=== PATIENT | male | born 2005 | race Two or more races ===

== ENCOUNTER 2025-07-24 10:02 | Inpatient (IN) | payer MEDICAID, OTHER ==
[2025-07-22 14:50] VITALS: BP 130/81; PULSE 54; RESP 20; TEMP 97.9; O2SAT 100
[~2025-07-24] VITALS: Ht 182.9 cm; Wt 100.0 kg
--- NOTE | 2025-07-24 10:26 | ED.PDOC ---
GI ASSESSMENT HPI Comments 20 y.o male presents to the ED via EMS for a chief complaint of right sided abdominal pain radiating to his flank that started one month ago. Patient describes pain as sharp and intermittent, but states pain worsened today. Patient denies any nausea, vomiting or diarrhea. Additionally, patient reports constipation with last BM being one week ago and also has painful urination. Chief Complaint: Abdominal Pain Time Seen by MD: 09:55 Reviewed Notes: Nurses Notes, [facility] Department Supervisor Notes, Medications, Allergies Allergies: Coded Allergies: NO KNOWN ALLERGIES (Unverified , 07/24/25) Information Source: Patient, Emergency Med Personnel Mode of Arrival: EMS Timing: Months (1) Duration: Intermittent Quality: Sharp Vomitus: None Stool: Normal Severity: Moderate Recent: None Recent Hx of: None Pain Location: RUQ, RLQ Modifying Factors: Nothing Associated sign and symptoms: Abdominal Pain Past Medical History PAST MEDICAL HISTORY: Denies Surgical History: Denies all surgeries Family History Family History: Reviewed,noncontributory to illness, No family hx of Cancer, No family hx of DM, No family hx of Heart rajiv, No family hx of HTN, No family hx ofKidney rajiv, No family hx of Liver rajiv, No family hx of Lung rajiv, No family hx of Stroke Social History Smoker: Non-Smoker Alcohol: Denies ETOH Use Drugs: Denies Drug Use Lives In: Home Constitutional: denies: chills, diaphoresis, fatigue, fever, malaise, sweats, weakness, others EENTM: denies: blurred vision, double vision, ear bleeding, ear discharge, ear drainage, ear pain, ear ringing, eye pain, eye redness, hearing loss, mouth pain, mouth swelling, nasal discharge, nose bleeding, nose congestion, nose pain, photophobia, tearing, throat pain, throat swelling, voice changes, others Respiratory: denies: cough, hemoptysis, orthopnea, SOB at rest, shortness of breath, SOB with excertion, stridor, wheezing, others Cardiovascular: denies: chest pain, dizzy spells, diaphoresis, Dyspnea on exertion, edema, irregular heart beat, left arm pain, lightheadedness, palpitations, PND, syncope, others Gastrointestinal: reports: abdominal pain, constipated; denies: abdomen distended, blood streaked bowels, diarrhea, dysphagia, difficulty swallowing, hematemesis, melena, nausea, poor appetite, poor fluid intake, rectal bleeding, rectal pain, vomiting, others Genitourinary: reports: dysuria, flank pain; denies: burning, frequency, hematuria, incontinence, penile discharge, penile sore, pain, testicle pain, testicle swelling, urgency, others Neurological: denies: dizziness, fainting, headache, left sided numbness, left sided weakness, numbness, paresthesia, pre-existing deficit, right sided numbness, right sided weakness, seizure, speech problems, tingling, tremors, weakness, others Musculoskeletal: denies: back pain, gout, joint pain, joint swelling, muscle pain, muscle stiffness, neck pain, others Integumetry: denies: bruises, change in color, change in hair/nails, dryness, laceration, lesions, lumps, rash, wounds, others Allergic/Immunocompromised: denies: Difficulty Healing, Frequent Infections, Hives, Itching, others Hematologic/Lymphatic: denies: anemia, blood clots, easy bleeding, easy br uising, swollen glands, others Endocrine: denies: excessive hunger, excessive sweating, excessive thirst, excessive urination, flushing, intolerance to cold, intolerance to heat, unexplained weight gain, unexplained weight loss, others Psychiatric: denies: anxiety, bipolar disorder, depression, hopeless, panic disorder, schizophrenia, sleepless, suicidal, others All Other Systems: Reviewed and Negative Physical Exam General Appearance: Moderate Distress HEENT: Normal ENT Inspection, Pharynx Normal, TMs Normal Neck: Full Range of Motion, Non-Tender, Normal, Normal Inspection Respiratory: Chest Non-Tender, Lungs Clear, No Accessory Muscle Use, No Respiratory Distress, Normal Breath Sounds Cardiovascular: No Edema, No JVD, No Murmur, No Gallop, Normal Peripheral Pulses, Regular Rate/Rhythm Breast Exam: Deferred Gastrointestinal: No Organomegaly, Non Tender, No Pulsatile Mass, Normal Bowel Sounds, Soft Genitalia: Deferred Pelvic: Deferred Rectal: Deferred Extremities: No calf tenderness, Normal capillary refill, Normal inspection, Normal range of motion, Non-tender, No pedal edema Musculoskeletal : Apperance: Normal Neurologic: Alert, battery inspector II-XII nml as Tested, No Motor Deficits, Normal Affect, Normal Mood, No Sensory Deficits Cerebellar Function: Normal Reflexes: Normal Skin: Dry, Normal Color, Warm Peripheral Pulses: 3+ Radial (R), 3+ Radial (L) Lymphatic: No Adenopathy Was a procedure done? Was a procedure done?: No GI differential Dx Differential Diagnosis: Bowel Obstruction, Cholangitis, Cholecystitis, Constipation, Esophagitis, Gastritis/PUD, Gastroenteritis, Kidney Stone X-Ray, Labs, Meds, VS Vital Signs Date Time Temp Pulse Resp B/P (MAP) Pulse Ox O2 Delivery O2 Flow Rate FiO2 07/24/25 10:04 98.7 88 17 130/83 100 98.7 Patient alert. Complaining of abdominal discomfort. Abdomen is soft nontender. Vitals stable. Answering questions. No leg swelling. No shortness a breath. Possible colitis. CT scan of the abdomen does confirm. Was given Rocephin. Was given Flagyl. Continues to have abdominal pain. Explained to the patient. Continue monitoring. Time of 1ST Reevaluation: 10:23 Reevaluation 1ST: Unchanged Patient Education/Counseling: Diagnosis, Treatment, Prognosis Family Education/Counseling: No Family Present SEPSIS Sepsis Screen Date sepsis recognized/suspect: Jul 24, 2025 Time Sepsis recognized/suspect: 1007 Recent Procedure: No On Antibiotic Therapy: No Respiratory Rate >20: No Heart Rate >90: No Temp<36 C (96.8 F) or >38.3 C: No SBP <90 or MAP <65 mmHG: No New Acute Mental Status Change: No Is the patient on CPAP, BIPAP,: No Physician Orders Ct Ab Pel Wo Con-No Oral Or Iv (07/24/25 10:08) Complete Blood Count (07/24/25 11:41) Basic Metabolic Panel (07/24/25 11:41) Sodium Chloride 0.9% (07/24/25 11:45) Ceftriaxone 1gm/50ml (Rocephin) (07/24/25 11:45) Metronidazole 500mg/100ml (Flagyl 500mg/ (07/24/25 11:45) Vital Signs Date Time Temp Pulse Resp B/P (MAP) Pulse Ox O2 Delivery O2 Flow Rate FiO2 07/24/25 10:04 98.7 88 17 130/83 100 98.7 Departure 1 Departure Time of Disposition: 11:11 Impression: Primary Impression: Non-specific colitis Disposition: ADMITTED INPATIENT Admit to: Med Surg Condition: Guarded Critical Care Note Critical Care Time?: No Stability Stability form required: No I personally scribed for ALLY SALINAS MD ([email or web address]) on 07/24/25 at 10:26. Electronically submitted by Sofia Marcos ([facility]). ALLY SALINAS MD Jul 24, 2025 10:26
--- NOTE | 2025-07-24 11:31 | DVH ---
Exam: CT CT AB PEL WO CON-NO ORAL OR IV History: stone Comparison Study: None Technique: Multidetector spiral CT of the abdomen was performed from lung bases to pubic symphysis. I maging was performed without IV contrast. Axial, coronal and sagittal multiplanar reformats were obta ined from the axial data set by the technologist. Radiation Dose : 1. Abdomen/Pelvis: CTDIvol 12.98 mGy, DLP 724.28 mGy*cm. Findings: Evaluation of solid organs is limited due to lack of intravenous contrast use. Lung Bases: No acute or significant lung base finding. Normal heart size. No pleural or pericardial effusion. Liver: The liver is normal in size. No focal lesions. Gallbladder and Biliary Tree: Unremarkable Spleen: Unremarkable Pancreas: The pancreas is grossly normal in appearance. Adrenal Glands: Unremarkable Kidneys: Kidneys are grossly normal without calculi or hydronephrosis. Bladder: Grossly unremarkable for degree of distention. Bowel: The stomach is grossly normal in appearance. Diverticulosis. [id number] diffuse colonic bowel wall thickening. The appendix is not visualized; however, no secondary findings of acute append icitis identified. Ascites: Absent Lymphadenopathy: No mesenteric, retroperitoneal or periportal lymphadenopathy. Abdominal Wall and Mesentery: Small fat containing umbilical hernia. Vasculature: The visualized abdominal aorta is normal in size and caliber. Evaluation of abdominal a nd pelvic vessels is limited due to lack of intravenous contrast. Pelvic Organs: Unremarkable Musculoskeletal: No aggressive focal bony lesions, acute fractures or dislocation. IMPRESSION: [id number]-[id number] diffuse colonic bowel wall thickening. Correlate for colitis. Diverticulosis. Radiation optimization: All CT scans at this facility use at least one of these dose optimization jan hniques: automated exposure control mA and/or kV adjustment per patient size (includes targeted exam s where dose is matched to clinical indication) or iterative reconstruction.
[2025-07-24 12:09] LABS: Nucleated Red Blood Cells % 0.0 %
[2025-07-24 12:11] LABS: Hematocrit 41.1 % (41.0-53.0); Hemoglobin 14.1 g/dL (13.5-17.5); Mean Corpuscular Hemoglobin 27.1 pg (28.0-32.0); Mean Corpuscular Volume 79.1 fL (80.0-100.0)
[2025-07-24 12:32] VITALS: PULSE 58; RESP 16; O2SAT 99
[2025-07-24 12:42] LABS: Anion Gap 10 (5-15); Calcium 9.7 mg/dL (8.7-10.4)
[2025-07-24] MEDS ORDERED: HYDROcodone-ACET 5/325MG TAB PO PRN (12:45)
[2025-07-24] MEDS ORDERED: MORPHINE SULFATE INJ 2 MG/ml SYRG IV PRN (12:45)
[2025-07-24] MEDS ORDERED: ACETAMINOPHEN 325 MG TAB PO PRN (12:45)
[2025-07-24 12:46] LABS: Carbon Dioxide 25 mmol/L (20-31); Chloride 103 mmol/L (98-107); Potassium 4.0 mmol/L (3.5-5.1); Sodium 138 mmol/L (136-145)
[2025-07-24 12:49] LABS: Glucose 107 mg/dL (74-106)
--- NOTE | 2025-07-24 12:49 | DVHHP2 ---
History of Present Illness Reason for Visit: Right-sided rib pain radiating to the back History of Present Illness Dre Hinojosa I is a 20-year-old male with past medical history of insomnia, SI, depression, ADHD, and anxiety who presents to the ED with right-sided rib cage pain that radiates to his back. Patient currently states the pain is 9/10 pressure-like and intermittent in nature. Patient reports that he helps his family lift heavy items. Patient denies any suicidal ideation at this time, denies any plans to hurt himself or others, or thoughts of harming himself or o thers. Patient also reports that he is taking Prozac. He also reports that he ate a digiorno pizza and chicken that his family brought home that was fried. Patient denies any recent sick contacts, recent travels, chest pain, shortness of breath, fever, chills, lightheadedness, weakness, dizziness, nausea, vomiting, diarrhea, or urinary symptoms. Psych: Depression Past Medical History Insomnia SI ADHD Anxiety Past Surgical History: None Family History: None Smoke: No ALCOHOL: occassional Drugs: None Lives: with Family Domestic Violence: Neg Review of Systems Gastrointestinal: Abdominal Pain, Other (Flank pain) Allergies: Coded Allergies: NO KNOWN ALLERGIES (Unverified , 07/24/25) Exam Vital Signs Vital Signs Date Time Temp Pulse Resp B/P (MAP) Pulse Ox O2 Delivery O2 Flow Rate FiO2 07/24/25 12:27 97.5 66 16 124/80 (95) 98 97.5 General Appearance: Alert, Oriented X3, Cooperative, No acute distress HEENT: Atraumatic, PERRLA, EOMI, Mucous membr. moist/pink Respiratory: Clear to auscultation, Normal air movement Cardiovascular: Normal S1, Normal S2, No murmurs Abdominal: Normal bowel sounds, Soft Extremities: No clubbing, No cyanosis, No edema, Normal pulses, No tenderness/swelling Skin: No rashes, No breakdown, No significant lesion Neuro: Normal gait, Normal speech, Strength at 5/5 X4 ext, Normal tone, Sensation intact Psych/Mental Status: Mental status NL, Mood NL Labs/Xrays Labs Test 07/24/25 11:56 Range/Units White Blood Count 8.8 4.4-10.8 10^3/uL Red Blood Count 5.19 4.5-5.90 10^6/uL Hemoglobin 14.1 13.5-17.5 g/dL Hematocrit 41.1 41.0-53.0 % Mean Corpuscular Volume 79.1 L 80.0-100.0 fL Mean Corpuscular Hemoglobin 27.1 L 28.0-32.0 pg Mean Corpuscular Hemoglobin Concent 34.3 32.0-36.0 g/dL Red Cell Distribution Width 13.2 11.8-14.3 % Platelet Count 261 140-450 10^3/uL Mean Platelet Volume 8.1 6.9-10.8 fL Neutrophils (%) (Auto) 68.7 37.0-80.0 % Lymphocytes (%) (Auto) 24.4 10.0-50.0 % Monocytes (%) (Auto) 5.5 0.0-12.0 % Eosinophils (%) (Auto) 1.1 0.0-7.0 % Basophils (%) (Auto) 0.3 0.0-2.0 % Neutrophils # (Auto) 6.0 1.6-8.6 10 ^3/uL Lymphocytes # (Auto) 2.1 0.4-5.4 10 ^3/uL Monocytes # (Auto) 0.5 0-1.3 10 ^3/uL Eosinophils # (Auto) 0.1 0-0.8 10 ^3/uL Basophils # (Auto) 0 0-0.2 10 ^3/uL Nucleated Red Blood Cells 0.0 % Exam: CT CT AB PEL WO CON-NO ORAL OR IV History: stone Comparison Study: None Technique: Multidetector spiral CT of the abdomen was performed from lung bases to pubic symphysis. Imaging was performed without IV contrast. Axial, coronal and sagittal multiplanar reformats were obtained from the axial data set by the technologist. Radiation Dose : 1. Abdomen/Pelvis: CTDIvol 12.98 mGy, DLP 724.28 mGy*cm. Findings: Evaluation of solid organs is limited due to lack of intravenous contrast use. Lung Bases: No acute or significant lung base finding. Normal heart size. No pleural or pericardial effusion. Liver: The liver is normal in size. No focal lesions. Gallbladder and Biliary Tree: Unremarkable Spleen: Unremarkable Pancreas: The pancreas is grossly normal in appearance. Adrenal Glands: Unremarkable Kidneys: Kidneys are grossly normal without calculi or hydronephrosis. Bladder: Grossly unremarkable for degree of distention. Bowel: The stomach is grossly normal in appearance. Diverticulosis. Rhbk-gu-[id number] diffuse colonic bowel wall thickening. The appendix is not visualized; however, no secondary findings of acute appendicitis identified. Ascites: Absent Lymphadenopathy: No mesenteric, retroperitoneal or periportal lymphadenopathy. Abdominal Wall and Mesentery: Small fat containing umbilical hernia. Vasculature: The visualized abdominal aorta is normal in size and caliber. Evaluation of abdominal and pelvic vessels is limited due to lack of intravenous contrast. Pelvic Organs: Unremarkable Musculoskeletal: No aggressive focal bony lesions, acute fractures or dislocati on. IMPRESSION: [id number] diffuse colonic bowel wall thickening. CLINICAL HISTORY: pain TECHNIQUE: Complete ultrasound exam of the kidneys and bladder was performed. COMPARISON: None FINDINGS: Evaluation of the left kidney is mildly limited due to suboptimal visualization due to overlying bowel gas. The right kidney has normal echogenicity and measures 11.3 cm. There is no focal parenchymal abnormality or evidence for stone. There is no hydronephrosis. The left kidney has normal echogenicity and measures 9.5 cm. There is no focal parenchymal abnormality or evidence for stone. There is no hydronephrosis. The bladder is grossly unremarkable. IMPRESSION: NO SIGNIFICANT SONOGRAPHIC ABNORMALITY OF THE KIDNEYS. Correlate for colitis. Diverticulosis. SEPSIS Sepsis Screen Date sepsis recognized/suspect: Jul 24, 2025 Time Sepsis recognized/suspect: 1007 Recent Procedure: No On Antibiotic Therapy: No Respiratory Rate >20: No Heart Rate >90: No Temp<36 C (96.8 F) or >38.3 C: No SBP <90 or MAP <65 mmHG: No New Acute Mental Status Change: No Is the patient on CPAP, BIPAP,: No Physician Orders Ct Ab Pel Wo Con-No Oral Or Iv (07/24/25 10:08) Basic Metabolic Panel (07/24/25 11:41) Sodium Chloride 0.9% (07/24/25 11:45) Metronidazole 500mg/100ml (Flagyl 500mg/ (07/24/25 11:45) Vital Signs Date Time Temp Pulse Resp B/P (MAP) Pulse Ox O2 Delivery O2 Flow Rate FiO2 07/24/25 12:27 97.5 66 16 124/80 (95) 98 97.5 07/24/25 11:45 97.7 58 16 143/91 (108) 98 97.7 07/24/25 10:04 98.7 88 17 130/83 100 98.7 Laboratory Tests Test 07/24/25 11:56 White Blood Count 8.8 10^3/uL (4.4-10.8) Assessment/Plan Assessment/Plan Assessment Intractable right-sided rib pain radiating to the back unrelieved with p.o. medications Possible colitis Alcohol use History of SI History of depression History of ADHD History of insomnia History of anxiety Plan Admit to med surge Antiemetics Pain management NS [address] abdomen and pelvis noted UA UDS Renal ultrasound IV antibiotics-ceftriaxone Chest x-ray ordered Blood alcohol level Diet RN to reconciled patient's home medication DVT prophylaxis-SCDs PUD prophylaxis-PPIs Discussed plan of care with patient and nurse Counseled patient on cessation of alcohol use [id number] Preventive counseling healthy eating habits, physical activity, and regular checkups Plan discussed with: Patient Date of Service: Jul 24, 2025 Billing Provider: ALEX JORDAN Common Visit Codes: 49969-YBSPIVP INP/OBS CARE (HIGH) Secondary Visit Codes: [id number] COUNSELING IND ALEX JORDAN Jul 24, 2025 12:49
[2025-07-24 12:59] LABS: BUN/Creatinine Ratio 12.0 (10.0-20.0); Blood Urea Nitrogen 14 mg/dL (9-23)
[2025-07-24] MEDS: ONDANSETRON HCL 4 MG/2 ML VIAL IV PRN (13:14)
[2025-07-24] MEDS: SODIUM CHLORIDE 0.9% 1,000 ML IV ONE (13:14)
[2025-07-24 13:29] LABS: Urine Protein, UAD Negative (Negative)
--- NOTE | 2025-07-24 13:43 | DVH ---
CLINICAL HISTORY: pain TECHNIQUE: Complete ultrasound exam of the kidneys and bladder was performed. COMPARISON: None FINDINGS: Evaluation of the left kidney is mildly limited due to suboptimal visualization due to overlying nedra l gas. The right kidney has normal echogenicity and measures 11.3 cm. There is no focal parenchymal abnormal ity or evidence for stone. There is no hydronephrosis. The left kidney has normal echogenicity and measures 9.5 cm. There is no focal parenchymal abnormali ty or evidence for stone. There is no hydronephrosis. The bladder is grossly unremarkable. IMPRESSION: NO SIGNIFICANT SONOGRAPHIC ABNORMALITY OF THE KIDNEYS.
[2025-07-24 14:37] VITALS: BP 130/81; PULSE 54; RESP 20; TEMP 97.9; O2SAT 100
--- NOTE | 2025-07-24 16:48 | DVH ---
EXAM: XY CHEST XRAY 1 VIEW CLINICAL HISTORY: r/o pna TECHNIQUE: Single AP view of the chest WID: COMPARISON: None FINDINGS: Lines and tubes: None Chest: The heart size and pulmonary vasculature is within normal limits. No pleural effusion, pneumothorax, or consolidation. The left costophrenic angle is not included in t he field of view. The osseous structures are grossly intact. IMPRESSION: 1. No acute cardiopulmonary abnormality.
[2025-07-24 17:00] VITALS: BP 134/77; PULSE 63; RESP 16; TEMP 98.2; O2SAT 100
[2025-07-24 20:00] VITALS: PULSE 72; RESP 16; O2SAT 96
[2025-07-24 21:00] VITALS: BP 114/73; PULSE 72; RESP 16; TEMP 98.4; O2SAT 96
[2025-07-24 22:00] VITALS: PULSE 72; RESP 18; O2SAT 98
[2025-07-25 01:00] VITALS: BP 138/82; PULSE 51; RESP 20; TEMP 97.5; O2SAT 99
[2025-07-25 06:15] LABS: Hematocrit 42.1 % (41.0-53.0); Hemoglobin 14.4 g/dL (13.5-17.5); Mean Corpuscular Hemoglobin 27.3 pg (28.0-32.0); Mean Corpuscular Volume 79.6 fL (80.0-100.0); Nucleated Red Blood Cells % 0.1 %
[2025-07-25 06:36] LABS: Alanine Aminotransferase 11 U/L (7-40); Albumin 4.2 g/dL (3.2-4.8); Alkaline Phosphatase 77 U/L (46-116); Anion Gap 10 (5-15); BUN/Creatinine Ratio 7.6 (10.0-20.0); Bilirubin, Total 0.4 mg/dL (0.2-1.0); Blood Urea Nitrogen 9 mg/dL (9-23); Calcium 9.2 mg/dL (8.7-10.4); Carbon Dioxide 25 mmol/L (20-31); Chloride 105 mmol/L (98-107); Glucose 93 mg/dL (74-106); Potassium 4.1 mmol/L (3.5-5.1); Sodium 140 mmol/L (136-145); Total Protein 6.8 g/dL (5.7-8.2)
[2025-07-25 08:00] VITALS: PULSE 61; RESP 18; O2SAT 99
[2025-07-25 09:00] VITALS: BP_SYST 115; BP_SYST 158; BP_DIAS 70; BP_DIAS 87; PULSE 61; PULSE 66; RESP 18; RESP 20; TEMP 97.3; TEMP 97.8; O2SAT 96; O2SAT 99
--- NOTE | 2025-07-25 15:46 | DVHDS2 ---
Discharge Summary Date of Admission Jul 24, 2025 at 12:35 Date of Discharge: Jul 25, 2025 Labs/Diagnostic Data: Laboratory Results Test 07/25/25 05:33 07/24/25 13:05 07/24/25 11:56 White Blood Count 8.4 10^3/uL (4.4-10.8) Red Blood Count 5.29 10^6/uL (4.5-5.90) Hemoglobin 14.4 g/dL (13.5-17.5) Hematocrit 42.1 % (41.0-53.0) Mean Corpuscular Volume 79.6 fL (80.0-100.0) Mean Corpuscular Hemoglobin 27.3 pg (28.0-32.0) Mean Corpuscular Hemoglobin Concent 34.2 g/dL (32.0-36.0) Red Cell Distribution Width 13.1 % (11.8-14.3) Platelet Count 246 10^3/uL (140-450) Mean Platelet Volume 8.3 fL (6.9-10.8) Neutrophils (%) (Auto) 44.3 % (37.0-80.0) Lymphocytes (%) (Auto) 45.8 % (10.0-50.0) Monocytes (%) (Auto) 6.7 % (0.0-12.0) Eosinophils (%) (Auto) 2.6 % (0.0-7.0) Basophils (%) (Auto) 0.6 % (0.0-2.0) Neutrophils # (Auto) 3.7 10 ^3/uL (1.6-8.6) Lymphocytes # (Auto) 3.8 10 ^3/uL (0.4-5.4) Monocytes # (Auto) 0.6 10 ^3/uL (0-1.3) Eosinophils # (Auto) 0.2 10 ^3/uL (0-0.8) Basophils # (Auto) 0.1 10 ^3/uL (0-0.2) Nucleated Red Blood Cells 0.1 % Sodium Level 140 mmol/L (136-145) Potassium Level 4.1 mmol/L (3.5-5.1) Chloride Level 105 mmol/L (98-107) Carbon Dioxide Level 25 mmol/L (20-31) Anion Gap 10 (5-15) Blood Urea Nitrogen 9 mg/dL (9-23) Creatinine 1.19 mg/dL (0.700-1.30) Glomerular Filtration Rate Calc 89 mL/min (>90) BUN/Creatinine Ratio 7.6 (10.0-20.0) Serum Glucose 93 mg/dL (74-106) Calcium Level 9.2 mg/dL (8.7-10.4) Total Bilirubin 0.4 mg/dL (0.2-1.0) Aspartate Amino Transferase (AST) 11 U/L (13-40) Alanine Aminotransferase (ALT) 11 U/L (7-40) Alkaline Phosphatase 77 U/L (46-116) Total Protein 6.8 g/dL (5.7-8.2) Albumin 4.2 g/dL (3.2-4.8) Lipase 32 U/L (12-53) Urine Color Light-yellow (Yellow) Urine Clarity Clear (Clear) Urine pH 5.5 (5.0-9.0) Urine Specific [place] 1.027 (1.001-1.035) Urine Protein Negative (Negative) Urine Ketones Negative (Negative) Urine Blood Negative /uL (Negative) Urine Nitrite Negative (Negative) Urine Bilirubin Negative (Negative) Urine Urobilinogen Normal mg/dL (Negative) Urine Leukocyte Esterase Negative /uL (Negative) Urine RBC <1 /hpf (0 - 3) Urine Microscopic WBC < 1 /HPF (0-3) Urine Squamous Epithelial Cells None seen /hpf (<5) Urine Bacteria Few /hpf (None Seen) Urine Glucose Normal mg/dL (Normal) Plasma/Serum Blood Alcohol < 3.0 mg/dL (<10) Other Laboratory Tests 07/25/25 05:33 Brief Hx & Hospital Course: 20 yo M with MDD ADHD SOREN insomnia admitted for rib pain. evaluation was wnl. denies drug alcohol ause. no SI/SA currently. 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 stable [facility] Condition at Discharge: Stable Final Diagnosis/Problems List rib pain likely muscle spasm gastroenteritis Discharge Disposition: Home Discharge Instruct/Medications Diet: Cardiac 2g Na,low cholest Activity: No Restrictions, As Tolerated No Active Prescriptions or Reported Meds Discharge Statement: "Patient was advised to return to the ER or call 911 if any headaches, dizziness, shortness of breath, chest pain, abdominal pain, bleeding, fevers, or worsening of medical condition. Patient was counseled about treatment plan, medications, possible side effects, patientverbalized understanding. All questions were answered to the best of my ability. This discharge took greater then 30 minutes in planning, reviewing documentation, counseling the patient, and discussing with other team members." ASSESSMENT ASSESSMENT Assessment Date of Service: Jul 25, 2025 Billing Provider: ÁNGEL ANDRADE MD Common Visit Codes: 06034-REH/OBS DISCH DAY >30min ÁNGEL ANDRADE MD Jul 25, 2025 15:46
== END 2025-07-25 15:13 | disposition home or self-care (01) | DRG 351 ==
LOC: EDBD 10:02 → ER 10:02 → OVERFLOW 12:35 → WEST WING 21:53
DX: M62.838 Other muscle spasm (principal); A09 Infectious gastroenteritis and colitis, unspecified; F10.90 Alcohol use, unspecified, uncomplicated; F32.A Depression, unspecified; K59.00 Constipation, unspecified; F41.9 Anxiety disorder, unspecified; Z79.899 Other long term (current) drug therapy; Y90.9 Presence of alcohol in blood, level not specified
CPT/HCPCS: 36415; 71045; 74176; 76775; 80048; 80053; 80320; 81001; 83690; 85025; 96365; G0378; J2405; J3490